=== PATIENT | female | born 1995 | race African-American/Black ===

== ENCOUNTER 2022-09-02 12:07 | Emergency (ER) | payer OTHER ==
[~2022-09-02] VITALS: Ht 167.6 cm; Wt 64.0 kg
[2022-09-02 12:26] VITALS: BP 106/65
[2022-09-02] MEDS ORDERED: LIDOCAINE HCL 1% 20ML VIAL (Pyxis) INJ INFIL ONE ×2 (14:15)
[2022-09-02] MEDS ORDERED: LIDOCAINE HCL 1% 10 MG/ML 10ML VIAL INJ NR ×2 (14:30)
[2022-09-02] MEDS ORDERED: ACET-2708 MT (15:47)
[2022-09-02] MEDS ORDERED: ACETAMINOPHEN 325MG TABLET PO ONE (16:00)
== END 2022-09-02 17:05 | disposition home or self-care (01) ==
LOC: ER 12:30
DX: S63.273A Dislocation of unspecified interphalangeal joint of left middle finger, initial encounter (principal); W23.0XXA Caught, crushed, jammed, or pinched between moving objects, initial encounter; Y93.67 Activity, basketball; Y92.89 Other specified places as the place of occurrence of the external cause; Y99.8 Other external cause status
CPT/HCPCS: 73140; 99283; J3490